=== PATIENT | male | born 1970 | race Two or more races ===

== ENCOUNTER 2021-05-09 21:17 | Inpatient (IN) | payer BC ==
[~2021-05-09] VITALS: Ht 170.2 cm; Wt 136.1 kg
--- NOTE | 2021-05-09 21:30 | NUR ---
BIBRA C/O NON RADIATING MIDDLE CP SINCE LAST NIGHT. PATIENT ALERT AND ORIENTED X3. AMBULATORY WITH NON LABORED BREATHING. PT PLACED ON MONITOR AND PULSE OX.
--- NOTE | 2021-05-09 21:45 | NUR ---
BLOOD COLLECTED AND SENT TO LAB
[2021-05-09] MEDS ORDERED: MORPHINE SULFATE INJ 4 MG/ML DISP.SYRIN ONE (21:57)
[2021-05-09] MEDS ORDERED: MORPHINE SULFATE INJ 2 MG/ML DISP.SYRIN IV ONE (22:00)
[2021-05-09 22:11] LABS: CALCIUM, SERUM 9.3 mg/dL (8.5-10.1); CREATININE 1.7 mg/dL (0.6-1.3); POTASSIUM 3.2 mmol/L (3.5-5.1)
[2021-05-09 22:24] LABS: BASOPHILS # (AUTO) 0.1 K/uL (0.0-0.2); BASOPHILS % (AUTO) 0.7 % (0.0-2.0); EOSINOPHILS % (AUTO) 1.3 % (0.0-6.0); HEMATOCRIT 47 % (39-51); HEMOGLOBIN 16.2 g/dL (13.5-17.5); LYMPHOCYTES # (AUTO) 2.9 K/uL (0.8-4.8); LYMPHOCYTES % (AUTO) 28.5 % (20.0-44.0); MEAN CORPUSCULAR HGB CONC 34 g/dl (31.0-36.0); MEAN CORPUSCULAR VOLUME 93 fL (80-96); MONOCYTES # (AUTO) 0.8 K/uL (0.1-1.30); MONOCYTES % (AUTO) 7.4 % (2.0-12.0); NEUTROPHILS # (AUTO) 6.4 K/uL (1.8-8.9); NEUTROPHILS % (AUTO) 62.1 % (43.0-81.0); PLATELET COUNT (AUTO) 245 K/uL (150-450); RED BLOOD CELL COUNT(AUTO) 5.11 MIL/uL (4.5-6.0); WHITE BLOOD COUNT (AUTO) 10.2 K/uL (4.3-11.0)
[2021-05-09] MEDS ORDERED: ASPIRIN 325 MG TABLET PO ONE (22:30)
[2021-05-09] MEDS ORDERED: NITROGLYCERIN 0.4 MG/TAB BOTTLE SL ONE (22:30)
--- NOTE | 2021-05-09 22:35 | NUR ---
MRSA SWAB COLLECTED AND SENT TO LAB. PATIENT'S BELONGINGS LIST DONE.
--- NOTE | 2021-05-09 23:26 | NUR ---
POTASSIUM 2.6
--- NOTE | 2021-05-10 05:42 | NUR ---
PT RESTING COMFORTABLY NO COMPLAINTS AT THIS TIME.
--- NOTE | 2021-05-10 07:45 | NUR ---
ROOM 315-1
[2021-05-10] MEDS ORDERED: ALBU8.5H8 IH (07:58)
[2021-05-10] MEDS ORDERED: BENA20TA9 PO (07:58)
[2021-05-10] MEDS ORDERED: HYDR-4209 PO (07:58)
[2021-05-10] MEDS ORDERED: ASPI-1420 PO (07:58)
--- NOTE | 2021-05-10 08:28 | NUR ---
report given to rachel blankenship
[2021-05-10 09:00] VITALS: BP 151/101
--- NOTE | 2021-05-10 11:35 | NUR ---
SS consult: SS consult requested for safe discharge planning. Pt. is a 50-year-old who presented to the ED with chest pain that began after drinking at a bar per the EMR. Upon SS consult, pt. is A&O x3 and appeared unkempt. Pt. presented with a dysphoric mood and slow speech. Pt. appeared disoriented. Per EMR, pt. was administered morphine sulfate prior to SS consult. Pt. was lethargic and drowsy. SW explored pt.s social support. Pt. stated he had no friends or family. SW explored pt.s living situation. Pt. stated they were staying at [facility] [[address] [place] [address]; ] for chest pain. Pt. stated he has been homeless for a month. SW offered homeless resources and pt. accepted. SW explored pt.s financial situation. Pt. stated he receives 1,050 a month on Disability SSI. SW explored pt.s substance abuse hx. Pt. stated he has had drug and alcohol use for the last fifteen years. Pt. stated he used cannabinoids yesterday due to pain. Pt. stated he is prescribed hydrocodone and Percocet for a dislocated disk in his back. Pt. states he need this prescription or I have to get heroin on the street. SW offered addiction resources and pt. accepted them. SW explored pt.s psychiatric history. Pt. stated they have been diagnosed with paranoid schizophrenia, PTSD and MDD in the past. Pt. stated he has been taking Zoloft and Abilify for the last few years. Pt. stated the medications helps with voices in my head". Pt. denies current visual/auditory hallucinations. Pt. denies current SI/HI. Plan: Upon Discharge, pt. will stated he wants to return to [facility] [address] [place] [address]. SW will be available as needed. Pt. signed homeless waiver & it was placed in the pt.'s chart. SW provided pt. with the following homeless resources and pt. accepted them: Year-round shelters: [facility] [address] [place] [address] ; [facility] [address] [place] [address]; [facility] Fed[facility]ve[address] [facility]. [facility] [address] Winter Shelters: [facility] Saxena [place] Provider: Sergio of [place] Address: [address], [address] # of Beds: 47 Population Served: [facility] 6 | [facility] Cesia Manley [place] Provider: [facility] Address: [address] [place] [address], [address] # of Beds: 66 Population Served: [facility] BuzzStarter [place] Provider: [facility] Serve Address: [address] [facility], [address] # of Beds: 56 Population Served: [facility] Obed [place] Provider: /Ms. Brownlee'sabina House Address: [address] [facility], [address] # of Beds: 49 Population Served: [facility] 8 | [facility] Provider: [facility] Serve Address: [address] [facility], [address] # of Beds: 37 Population Served: [facility] Hygiene: [facility]: [address] [place] ap[address]va [place] ; [facility] [address] [facility] ; [facility] [address] [facility] . Food Resources: [place] [facility] at [facility]- [address] [facility]; Meet Each Need with Dignity ([facility]) [address] [facility] [place]; [facility] Food Pantry [address]39 [facility]; [facility] [address] [facility] [place]. Mental Health resources provided: [facility] [address] [place] [address] ; [facility] [address] [facility] [address], [place] [address] ; [facility] [address] [place] [address] ; [facility] [place], [place] [phone] Healthcare Clinics: [facility] [address]riz[address] [facility], [address] [place]. [place] ; [facility] [address] [facility] [address] [place] [address]; [facility] [address] [facility] [place] [address] [phone]) [phone] Counseling--Outpatient [facility] [address] [facility], [place] [address] (Specializes in in-depth psychotherapy for emotional distress: anxiety, depression, interpersonal conflicts, life transitions, childhood abuse) [facility] Guid[facility] Center [address] [place] [address] (Assist with solving problem marital difficulties, separation & divorce, aging parents, & grief, chronic & terminal illness) [facility] [address] [place] [address] (Deal with loss & grief, anxiety, marital difficulties) Homebound/Mental Health Services [address] [address] [facility], [address] [place] [address] (Provide in-home mental services to people who are incapable of leaving their homes) [facility] of the Elderly Senior Service/Resource Center [address] [place] [address] [facility] [address] [place] [address] PSYCHIATRIC OUTPATIENT SERVICES [facility] Partial Hospitalization and Intensive Outpatient Program (Managed Care and [place] Only)[address] Navjot Baugh. [facility] [phone] [facility] Partial Hospitalization and Outpatient [id number] [facility]. [address] [place], [place] [phone] [facility] [id number] Renzo [facility]. [address] [place], [place] [phone] [facility] Erik Brizuela Partial Hospitalization and Outpatient [id number] Felipe Elliott, [phone] Substance Abuse resources provided included: [facility] Substance Abuse Self-Helpline ([facility]) ; [facility] [address] [facility]. [place] [address] ; [facility] [address] [facility] [address] ; [facility] Rehabilitation [facility] [address] [place] [address] ; [facility] [address] [facility] [phone] ; [facility] [address] [facility] [address] ; Joaquina [facility] [address] [facility] [phone] ; [facility] Substance Abuse Helpline([facility] ; [facility] ; [facility]; [facility] [place]; [facility] [place]; [facility] Erik Brizuela; [facility]; [facility]; [facility]; [facility], [facility]. [facility]; Alcoholics Anonymous -[facility]; Vp-Khas-Nmhjhdz ; Marijuana Anonymous -[facility]; Narcotics Anonymous www.na.org;
[2021-05-10 12:00] VITALS: BP 138/83
[2021-05-10] MEDS ORDERED: KETOROLAC TROMETHAMINE INJ 30 MG/ML VIAL IV ONE (15:00)
[2021-05-10] MEDS ORDERED: ONDANSETRON HCL/PF 4 MG/2 ML VIAL IVP PRN (15:00)
[2021-05-10] MEDS ORDERED: ZOLPIDEM TARTRATE 5 MG TABLET PO PRN (15:00)
[2021-05-10] MEDS ORDERED: ALBUTEROL FS 2.5 MG/0.5 ML VIAL.NEB IH PRN (15:00)
[2021-05-10] MEDS ORDERED: Z GUARD REMEDY 2 OZ OINT TP PRN (15:00)
[2021-05-10 15:54] LABS: CHOLESTEROL 124 mg/dL (<200); HDL CHOLESTEROL 44 mg/dL (40-60); LDL 63 mg/dL (0-99); TRIGLYCERIDES 85 mg/dL (30-150)
[2021-05-10 16:27] VITALS: BP 129/94
[2021-05-10] MEDS: DOCUSATE SODIUM 100 MG CAPSULE PO SCH (17:14)
[2021-05-10] MEDS: NITROGLYCERIN PACKET 1 GM PACKET TOP SCH (17:15)
[2021-05-10] MEDS: IV NS 0.9% 1,000 ML IV PRN (17:17)
--- NOTE | 2021-05-10 18:58 | NUR ---
MS RN CLOSING NOTE PATIENT IS LYING AWAKE IN BED, WATCHING TV. PT HAS BEEN STARTED ON IVF NS 75ML/HR; PATIENT DENIES ANY PAIN AT THIS TIME; BREATHING IS SYMMETRICAL AND SHOWING NO S/S OF DISTRESS; IV LAC #20 G SL PATENT; ALL NEEDS ATTENDED DURING THE DAY; PER SAFETY MEASURES, BED IS LOCKED, AT LOWEST POSITION, WITH RAILS UP X2. WILL ENDORSE PATIENT TO NEXT SHIFT FOR BRYSON.
[2021-05-10 20:00] VITALS: BP 128/88
--- NOTE | 2021-05-10 20:01 | NUR ---
SELF CONTAINED BEHAVIOR UNIT TEACHER OPENING NOTES RECEIVED PT IN BED, AWAKE. AOx4. ABLE TO MAKE NEEDS KNOWN. ON RA AND TOLERATING WELL. NO SOB NOTED. NO S/SX OF RESPIRATORY DISTRESS NOTED. TELE MONITOR DETECTS SINUS TACHYCARDIA WITH RATE OF 104. IV ACCESS IN LAC #20 RUNNING NS @ 75 ML/HR. SAFETY PRECAUTIONS IN PLACE: BED IN LOWEST, LOCKED POSITION, SIDERAILS UPx2, AND BRAKES ON. TABLE AND CALL LIGHT WITHIN REACH. WILL CONTINUE TO MONITOR.
[2021-05-10] MEDS: POTASSIUM CHLORIDE 20 MEQ TAB.PRT.SR PO SCH (20:37)
[2021-05-10] MEDS: BENAZEPRIL HCL 20 MG TABLET PO SCH (21:04)
[2021-05-10] MEDS: ACETAMINOPHEN 325 MG TABLET PO PRN (21:05)
[2021-05-10] MEDS ORDERED: ATORVASTATIN 40 MG TABLET PO SCH (22:00)
[2021-05-11] VITALS: BP 147/92
[2021-05-11] MEDS: NITROGLYCERIN PACKET 1 GM PACKET TOP SCH ×3 (00:04→13:30)
[2021-05-11] MEDS: POTASSIUM CHLORIDE 20 MEQ TAB.PRT.SR PO SCH ×2 (00:04→03:59)
[2021-05-11 04:00] VITALS: BP 151/114
[2021-05-11] MEDS: ACETAMINOPHEN 325 MG TABLET PO PRN (04:06)
[2021-05-11] MEDS: IV NS 0.9% 1,000 ML IV PRN (05:45)
--- NOTE | 2021-05-11 06:42 | NUR ---
SALES ADMINISTRATION MANAGER CLOSING NOTES PT IN BED, AWAKE, WATCHING TV. AOx4. ABLE TO MAKE NEEDS KNOWN. ON RA AND TOLERATING WELL. NO SOB NOTED. NO S/SX OF RESPIRATORY DISTRESS NOTED. TELE MONITOR DETECTS SINUS TACHYCARDIA WITH RATE OF 90-100. IV ACCESS IN LAC #20 RUNNING NS @ 75 ML/HR. ALL NEEDS MET. PT KEPT CLEAN AND DRY. SAFETY PRECAUTIONS IN PLACE: BED IN LOWEST, LOCKED POSITION, SIDERAILS UPx2, AND BRAKES ON. TABLE AND CALL LIGHT WITHIN REACH. WILL ENDORSE TO ONCOMING SHIFT FOR BRYSON.
[2021-05-11 06:47] LABS: BASOPHILS % (AUTO) 0.6 % (0.0-2.0); EOSINOPHILS % (AUTO) 4.4 % (0.0-6.0); HEMATOCRIT 46 % (39-51); HEMOGLOBIN 15.6 g/dL (13.5-17.5); LYMPHOCYTES # (AUTO) 2.4 K/uL (0.8-4.8); LYMPHOCYTES % (AUTO) 30.6 % (20.0-44.0); MEAN CORPUSCULAR HGB CONC 34 g/dl (31.0-36.0); MEAN CORPUSCULAR VOLUME 94 fL (80-96); MONOCYTES # (AUTO) 0.5 K/uL (0.1-1.30); MONOCYTES % (AUTO) 6.5 % (2.0-12.0); NEUTROPHILS # (AUTO) 4.6 K/uL (1.8-8.9); NEUTROPHILS % (AUTO) 57.9 % (43.0-81.0); PLATELET COUNT (AUTO) 231 K/uL (150-450); RED BLOOD CELL COUNT(AUTO) 4.87 MIL/uL (4.5-6.0)
[2021-05-11 07:14] LABS: CALCIUM, SERUM 8.2 mg/dL (8.5-10.1); CREATININE 0.8 mg/dL (0.6-1.3); MAGNESIUM 2.1 mg/dL (1.8-2.4); PHOSPHORUS 3.5 mg/dL (2.5-4.9); POTASSIUM 4.3 mmol/L (3.5-5.1)
[2021-05-11] MEDS ORDERED: PANTOPRAZOLE 40 MG TABLET.DR PO SCH (07:30)
--- NOTE | 2021-05-11 07:30 | NUR ---
LANGUAGE ASST OPENING NOTE RECEIVED PT AWAKE IN BED. A/O X4. PT IS STABLE ON ROOM AIR WITH NO SOB OR S/S OF RESPIRATORY DISTRESS NOTED. PT ON EXTERNAL COMPUTING SYSTEMS MECHANIC READING SR AT 82BPM. PT HAS NO C/O PAIN OR DISCOMFORT AT THIS TIME. IV ACCESS IN LAC #20 INFUSING NS @ 75 ML/HR, INTACT AND PATENT. SAFETY PRECAUTIONS MAINTAINED. BED IN LOWEST LOCKED POSITION, HOB ELEVATED, SIDE RAILS UP X2. CALL LIGHT AND TABLE WITHIN REACH. WILL CONTINUE TO MONITOR.
[2021-05-11] MEDS: BENAZEPRIL HCL 20 MG TABLET PO SCH (08:33)
[2021-05-11] MEDS: DOCUSATE SODIUM 100 MG CAPSULE PO SCH (08:33)
[2021-05-11] MEDS ORDERED: ASPIRIN EC 81 MG TABLET.DR PO SCH (09:00)
[2021-05-11 09:27] VITALS: BP 143/98
[2021-05-11 12:00] VITALS: BP 148/96
[2021-05-11 13:30] VITALS: BP 148/95
[2021-05-11] MEDS ORDERED: HYDROCODONE/APAP 5/325MG TABLET PO ONE (14:00)
--- NOTE | 2021-05-11 14:55 | NUR ---
GLAZIER HELPERASSISTANT PROFESSOR SCULPTURE NOTE PT DISCHARGED HOME WITH SELF CARE AT THIS TIME. PT IS MEDICALLY STABLE AND CLEARED FOR DISCHARGE BY TERRI DODGE. ALL PT CARE, NEEDS, MEDICATIONS, AND TREATMENT ADMINISTERED PER ORDER. DISCHARGE INSTRUCTIONS PROVIDED TO PT. PT VERBALIZED UNDERSTANDING. PT KEPT CLEAN AND DRY. IV ACCESS REMOVED, PRESSURE APPLIED, AND SECURED WITH GAUZE AND TAPE. NO SIGNS OF BLEEDING NOTED. ID BAND REMOVED. LESLY CALZADA ACCOMPANIED PT TO [facility]. CHARGE NURSE ANGELIQUE AND TERRI DODGE AWARE.
== END 2021-05-11 13:50 | disposition home or self-care (01) | DRG 917 ==
LOC: ER 21:20 → TELE 05-10 07:58
PROVIDERS: ADMIT Nurse Practitioner Acute Care; ATTEND Nurse Practitioner Acute Care
DX: T43.621A Poisoning by amphetamines, accidental (unintentional), initial encounter (principal); N17.0 Acute kidney failure with tubular necrosis; I25.110 Atherosclerotic heart disease of native coronary artery with unstable angina pectoris; Z68.42 Body mass index [BMI] 45.0-49.9, adult; I10 Essential (primary) hypertension; Z20.822 Contact with and (suspected) exposure to COVID-19; E87.6 Hypokalemia; E11.9 Type 2 diabetes mellitus without complications; E66.01 Morbid (severe) obesity due to excess calories; F15.188 Other stimulant abuse with other stimulant-induced disorder; Y92.009 Unspecified place in unspecified non-institutional (private) residence as the place of occurrence of the external cause; F10.10 Alcohol abuse, uncomplicated; F19.10 Other psychoactive substance abuse, uncomplicated
CPT/HCPCS: 36415; 71045-TC; 80048-TC; 80061-TC; 83735-TC; 83880; 84100-TC; 84484-TC; 85025-TC; 87081-TC; 87491; 87591; 87806; 93307-TC; C9803; G0378; J1885; J2270; J7030

== ENCOUNTER 2021-11-26 10:54 | Emergency (ER) | payer BC, OTHER ==
[~2021-11-26] VITALS: Ht 170.2 cm; Wt 127.0 kg
[~2021-11-26 10:54] MED LIST: ALBU8.5H8 IH; ASPI-1420 PO; BENA20TA9 PO; HYDR-4209 PO
--- NOTE | 2021-11-26 11:17 | NUR ---
TO ER BED 7, BIBS C/O COUGH AND BLISTER ON LEFT TOE X3DAYS, TESTED COVID- YESTERDAY, AAOX3, BREATHING EVEN AND NON LABORED, AWAITING MD BORDEN
--- NOTE | 2021-11-26 11:25 | NUR ---
SEEN AND EXAMINED BY DR BARRIOS
[2021-11-26] MEDS ORDERED: ALBU8.5H8 INH (11:54)
[2021-11-26] MEDS ORDERED: CODE473L6 PO (11:54)
--- NOTE | 2021-11-26 12:00 | NUR ---
Patient discharged to home in stable condition. Written and verbal after care instructions given. Patient verbalizes understanding of instruction.
[2021-11-26 12:01] VITALS: BP 140/95
== END 2021-11-26 12:03 | disposition home or self-care (01) ==
LOC: ER 10:58
DX: S90.425A Blister (nonthermal), left lesser toe(s), initial encounter (principal); J06.9 Acute upper respiratory infection, unspecified; I10 Essential (primary) hypertension; F17.200 Nicotine dependence, unspecified, uncomplicated; Z88.8 Allergy status to other drugs, medicaments and biological substances; Z60.2 Problems related to living alone; Z79.899 Other long term (current) drug therapy; X13.1XXA Other contact with steam and other hot vapors, initial encounter; Y93.89 Activity, other specified; Y92.89 Other specified places as the place of occurrence of the external cause; Y99.8 Other external cause status